=== PATIENT | male | born 1955 | race Caucasian/White ===

== ENCOUNTER → 2017-07-03 | Outpatient (CLI) | payer OTHER ==
[~2017-07-03] MED LIST: NS 100 ML IV 100 ML IV ONE
--- NOTE | 2017-07-03 12:29 | CT ---
CT chest with contrast Indication: Follow-up pulmonary nodule Comparison: 07/26/2014 Technique: Multiple axial images of the chest were obtained from the thoracic inlet to the upper abdo men after the administration of IV contrast. Findings: The thyroid gland is normal. Heart size is at the upper limits of normal without pericardial effusion . There is the moderate calcification of the aortic valve along with scattered calcification of the c oronary arteries. Small amount of fluid is noted within the pericardial recess. No enlarged mediastin al or hilar lymphadenopathy. Tiny subpleural pulmonary nodules noted within the right lower lobe on a xial image 42 which in retrospect was present on prior exam.. Calcification of the posterior pack seg ment unchanged. No acute inflammatory process identified within the visualized upper abdomen. There i s a small cyst again noted within the upper pole of the left kidney. Punctate stone is noted within t he lower pole left kidney as well. The all Impression: 1.No acute cardiopulmonary abnormality. No residual right hilar lymphadenopathy as was described on p rior CT examination. 2. Tiny subpleural pulmonary nodule within the right lower lobe unchanged from prior examination, giv en size and stability this is consistent with benign, inflammatory nodule. 3. Incidental findings within the visualized upper abdomen including stable calcification of the post erior pack segment, cyst within the upper pole left kidney and nonobstructing left nephrolithiasis. Reported By:
== END ==
LOC: RAD 09:28
PROVIDERS: ATTEND Internal Medicine
DX: R04.2 Hemoptysis (principal); Z72.0 Tobacco use
CPT/HCPCS: 71260; A4222

== ENCOUNTER 2023-12-06 11:44 | Observation (INO) ==
[2023-12-06 11:52] VITALS: BMI 40.6
--- NOTE | 2023-12-06 12:17 | DR.GENAD ---
HPI Time Seen Time Seen by Provider: 12/06/23 12:16 PCP Primary Care Physician: DR. FLORES Complaint/Symptoms Chief Complaint Doctors Comments: According to the spouse the patient around about 3 hours ago had some slurred speech he was shaking he was standing about a dresser and he does have a history of some tremors but he stated is been more in the last 3 months became more acute according to the this morning with more tremors. He is also has some cough and sore throat over the last couple of days Chief Complaint:: PT'S STATES THAT THIS MORNING WHEN SHE WALKED IN THE HOUSE PT WAS SHAKING AND HAD HIS HEAD LAID OVER THE DRESSER. STATES HE HAS TREMORS, BUT THIS WAS WAY WORSE. AND ALSO HAVING SOME SLURRED SPEECH WHICH HAS GOTTEN BETTER NOW. PT STATES HE WOKE UP THIS MORNING WITH A SORE THROAT, AND NOT FEELING GOOD. Source History Provided: Patient Mode of Arrival Mode of Arrival: Ambulatory Timing Onset of Chief Complaint: 12/06/23 PMH PMH Past Medical History: Yes Past Medical History: CHF, Hypertension and Hyperthyroidism Past Surgical History: Yes Surgical History: CABG/Valve Surgery and Other Family History History of Family Medical Conditions: Yes Family Medical History: Hypertension Social History Does patient currently use any type of tobacco product: No Have you used tobacco products in the last 12 months: No Type of Tobacco Use: None Does any household member use tobacco: No Alcohol Use: None Do you use any recreational Drugs:: No Lives With: Spouse Lives Where: Home Infectious screening Have you traveled outside the country in the last 6 months?: No Isolation: Standard ROS Review of Systems Constitutional: Other (Slurred speech with tremors) Eyes: No Symptoms Reported ENTM: No Symptoms Reported Respiratoy: No Symptoms Reported Cardiovascular: No Symptoms Reported Gastrointestinal/Abdominal: No Symptoms Reported Genitourinary: No Symptoms Reported Neurological: Speech Problem (Slurred speech) and Other Musculoskeletal: No Symptoms Reported Integumentary: No Symptoms Reported Hematologic/Lymphatic: No Symptoms Reported Endocrine: No Symptoms Reported Psychiatric: No Symptoms Reported PE Vital Signs Vitals: Vital Signs Temperature 98.0 F Temperature 98.8 F Pulse Rate 118 Pulse Rate 110 Respiratory Rate 20 Respiratory Rate 98 Respiratory Rate 20 Blood Pressure 130/75 Blood Pressure 135/69 Blood Pressure 138/60 O2 Sat by Pulse Oximetry 96 O2 Sat by Pulse Oximetry 95 O2 Sat by Pulse Oximetry 88 General Limitations: No Limitations General Appearance: Alert and In No Apparent Distress Head Head Exam: Normal Inspection Eyes Eye exam: Normal Appearance, PERRL and EOMI ENT ENT Exam: Normal Exam, Normal Oropharynx and Normal External Ear Exam External Ear Exam: Normal External Inspection TM/Canal Exam: Bilateral: Normal Nose Exam: Normal Nose Exam Mouth Exam: Normal Inspection Throat Exam: Normal Inspection Neck Neck Exam: Normal Inspection Chest Chest Inspection: Normal Inspection and Symmetric Chest Wall Rise Respiratory Respiratory Exam: Normal Lung Sounds Bilat Respiratory Exam: Bilateral: Clear to Auscultation Cardiovascular Cardiovascular Exam: Regular Rate and Normal Rhythm Abdominal Exam Abdominal Exam: Normal Inspection and Normal Bowel Sounds Extremities Extremities Exam: Normal Inspection Back Back Exam: Normal Inspection and Full ROM Neurologic Neurological Exam: Alert, Oriented X3 and CN II-XII Intact Psychiatric Psychiatric Exam: Normal Affect and Normal Mood Skin Skin Exam: Warm, Dry and Intact MDM Differential Diagnosis Differential Diagnosis: cva,seizure,sleep apnea COURSE Treatment Treatment: The patient was treated initially on a stroke protocol and the neurologist was and she felt that the patient probably had a seizure he will need to be ruled out for some type of embolic event. She suggested the patient since she could not he could not get a MRI to get tomorrow a CTA of the head and neck and a CT of head with contrast to rule out for some type of embolic event. She suggested patient be monitored overnight for any type of seizure activity but she did not think that the patient needed into the any antiseizure medications today during evaluation. Plan. The patient also had some renal insufficiency her BUN was 30 creatinine was 2.1 and his GFR was [address] we did speak to Dr[address] Bonilla that was a physician on- call and she said the patient could be admitted for further evaluation of the renal insufficiency and questionable seizure disorder and some type of TIA versus embolic stroke. The patient was told of the intent to admit and was agreeable to the admission. The utilization review stated the patient could be referred to observation. ROR Labs Reviewed Laboratory Results Reviewed?: Yes 12/06/23 12:50 12/06/23 12:50 Laboratory: WBC 8.8 X10^3/uL (3.6-10.0) 12/06/23 12:50 RBC 4.12 X10^6/uL (4.7-6.0) L 12/06/23 12:50 Hgb 12.0 g/dL (13.5-18.0) L 12/06/23 12:50 Hct 36.8 % (42.0-54.0) L 12/06/23 12:50 MCV 89.4 fL (80.0-100.0) 12/06/23 12:50 MCH 29.1 pg (27.0-34.0) 12/06/23 12:50 MCHC 32.5 g/dL (33.0-35.0) L 12/06/23 12:50 RDW 17.4 % (11.6-16.5) H 12/06/23 12:50 Plt Count 220 X10^3/uL (150.0-450.0) 12/06/23 12:50 MPV 6.6 fL (7.4-11.0) L 12/06/23 12:50 Neut % (Auto) 68.6 % (42.0-75.0) 12/06/23 12:50 Lymph % (Auto) 20.3 % (21.0-51.0) L 12/06/23 12:50 [place] % (Auto) 7.4 % (0.0-13.0) 12/06/23 12:50 Eos % (Auto) 2.7 % (0.9-2.9) 12/06/23 12:50 Baso % (Auto) 1.0 % (0.2-1.0) 12/06/23 12:50 Neut # (Auto) 6.1 x10^3/uL (2.2-4.8) H 12/06/23 12:50 Lymph # (Auto) 1.8 X10^3/uL (1.3-2.9) 12/06/23 12:50 [place] # (Auto) 0.7 x10^3/uL (0.3-0.8) 12/06/23 12:50 Eos # (Auto) 0.2 x10^3/uL (0.0-0.2) 12/06/23 12:50 Baso # (Auto) 0.1 X10^3/uL (0.0-0.1) 12/06/23 12:50 Absolute Nucleated RBC 0.1 /100WBC 12/06/23 12:50 PT 36.2 SECONDS (11.8-14.3) 12/06/23 12:50 INR Target Range - 12/06/23 12:50 INR 3.83 (0.8-1.3) H 12/06/23 12:50 APTT 72.9 SECONDS (22.9-36.5) H 12/06/23 12:50 PTT Comment - 12/06/23 12:50 Fibrinogen 571 mg/dL (239-489) H 12/06/23 12:50 Sodium 140 mmol/L (136-145) 12/06/23 12:50 Corrected Sodium TNP 12/06/23 12:50 Potassium 3.8 mmol/L (3.5-5.1) 12/06/23 12:50 Chloride 101 mmol/L (98-107) 12/06/23 12:50 Carbon Dioxide 32.4 mmol/L (21-32) H 12/06/23 12:50 BUN 30 mg/dL (7-18) H 12/06/23 12:50 Creatinine 2.11 mg/dL (0.70-1.30) H 12/06/23 12:50 Est GFR (MDRD) Af Amer 40 (>60) L 12/06/23 12:50 Est GFR (MDRD) Non-Af 33 (>60) L 12/06/23 12:50 Glucose 89 mg/dL (65-99) 12/06/23 12:50 POC Glucose (mg/dL) 119 mg/dL (65-99) H 12/06/23 12:47 Calcium 8.6 mg/dL (8.5-10.1) 12/06/23 12:50 Corrected Calcium TNP 12/06/23 12:50 Total Bilirubin 0.40 mg/dL (0.2-1.0) 12/06/23 12:50 AST 18 Units/L (15-37) 12/06/23 12:50 ALT 25 Units/L (12-78) 12/06/23 12:50 Alkaline Phosphatase 114 Units/L (46-116) 12/06/23 12:50 Creatine Kinase 97 Units/L (39-308) 12/06/23 12:50 Troponin I High Sens 9.4 ng/L (4.0-60.0) 12/06/23 12:50 Total Protein 7.1 g/dL (6.4-8.2) 12/06/23 12:50 Albumin 3.6 g/dL (3.4-5.0) 12/06/23 12:50 Globulin 3.5 g/dL (2.5-4.5) 12/06/23 12:50 Albumin/Globulin Ratio 1.0 Ratio (1.1-2.1) L 12/06/23 12:50 Triglycerides 149 mg/dL (0-150) 12/06/23 12:50 Cholesterol 121 mg/dL (0-200) 12/06/23 12:50 LDL Cholesterol, Calc 57 mg/dL (0-100) 12/06/23 12:50 HDL Cholesterol 34 mg/dL (40-60) L 12/06/23 12:50 Cholesterol/HDL Ratio 3.6 (0.0-5.0) 12/06/23 12:50 Specimen Type Clean catch urine 12/06/23 14:08 Urine Color Yellow (YELLOW) 12/06/23 14:08 Urine Appearance Clear (CLEAR) 12/06/23 14:08 Urine pH 5.0 (5.0 - 8.0) 12/06/23 14:08 Ur Specific Cope 1.030 (1.000-1.030) 12/06/23 14:08 Urine Protein 1+ (NEGATIVE) 12/06/23 14:08 Urine Glucose (UA) Negative (NEGATIVE) 12/06/23 14:08 Urine Ketones Negative (NEGATIVE) 12/06/23 14:08 Urine Blood Negative (NEGATIVE) 12/06/23 14:08 Urine Nitrite Negative (NEGATIVE) 12/06/23 14:08 Urine Bilirubin Negative (NEGATIVE) 12/06/23 14:08 Urine Urobilinogen Normal (NORMAL) 12/06/23 14:08 Ur Leukocyte Esterase Negative (NEGATIVE) 12/06/23 14:08 Urine RBC None seen /HPF (0-3) 12/06/23 14:08 Urine WBC 0-2 /HPF (0-5) 12/06/23 14:08 Ur Squamous Epith Cells Negative /HPF (NEGATIVE) 12/06/23 14:08 Urine Bacteria Trace /HPF (NEGATIVE) 12/06/23 14:08 Hyaline Casts Numerous /LPF (NEGATIVE) 12/06/23 14:08 Ur Culture Indicated? No/not indicated 12/06/23 14:08 Blood Type O POSITIVE 12/06/23 13:10 Antibody Screen Negative 12/06/23 13:10 Opioid Opioid Risk Tool Age (Qasim box if 16-45): No History of Preadolescent Sexual Abuse: No Total: 0 Total Score Risk Category: Low Risk Copyright: Alonso GREER predicting aberrant behaviors Discharge Plan Diagnosis Discharge Problem: Seizure, Brain TIA, Acute renal insufficiency Discharge Plan Patient Disposition: ADMITTED INPATIENT Condition: Stable Orders to Discharge Patient Discharge Orders: Transfer (Routine); Ordered 12/06/23 Ordered By: Roberto Najera
--- NOTE | 2023-12-06 13:04 | EKG ---
Test Reason : slurred speech Blood Pressure : */* mmHG Vent. Rate : 105 BPM Atrial Rate : 105 BPM P-R Int : 180 ms QRS Dur : 90 ms QT Int : 328 ms P-R-T Axes : 43 34 218 degrees QTc Int : 433 ms Sinus tachycardia Cannot rule out Anterior infarct , age undetermined Abnormal ECG When compared with ECG of 21-AUG-2023 10:06, No significant change was found Confirmed by Ivan Boland MD ([id number]) on 12/08/2023 11:24:25 AM Referred By: Confirmed By: Ivan Boland MD
[2023-12-06 13:05] LABS: BASOPHILS # (AUTO) 0.1 X10^3/uL (0.0-0.1); EOSINOPHILS # (AUTO) 0.2 x10^3/uL (0.0-0.2); EOSINOPHILS % (AUTO) 2.7 % (0.9-2.9); HEMATOCRIT 36.8 % (42.0-54.0); LYMPHOCYTES # (AUTO) 1.8 X10^3/uL (1.3-2.9); LYMPHOCYTES % (AUTO) 20.3 % (21.0-51.0); MEAN CORPUSCULAR HEMOGLOBIN 29.1 pg (27.0-34.0); MEAN CORPUSCULAR HGB CONC 32.5 g/dL (33.0-35.0); MEAN CORPUSCULAR VOLUME 89.4 fL (80.0-100.0); MEAN PLATELET VOLUME 6.6 fL (7.4-11.0); MONOCYTES # (AUTO) 0.7 x10^3/uL (0.3-0.8); MONOCYTES % (AUTO) 7.4 % (0.0-13.0); NEUTROPHILS # (AUTO) 6.1 x10^3/uL (2.2-4.8); NEUTROPHILS % (AUTO) 68.6 % (42.0-75.0); PLATELET COUNT 220 X10^3/uL (150.0-450.0); RED BLOOD COUNT 4.12 X10^6/uL (4.7-6.0); RED CELL DISTRIBUTION WIDTH 17.4 % (11.6-16.5); WHITE BLOOD COUNT 8.8 X10^3/uL (3.6-10.0)
[2023-12-06] MEDS: NS 1,000 ML IV 1,000 ML IV SCH ×2 (13:06→18:05)
--- NOTE | 2023-12-06 13:15 | CT ---
EXAM: BRAIN W/O CON HISTORY: slurred speech; heart cath, cabg COMPARISON: No relevant prior studies were available for comparison at the time of interpretation.. TECHNIQUE: CT images were obtained. Multiplanar reconstructions were created on a separate workstation and used during interpretation. All CT scans at this facility is dose modulation, iterative reconstruction, an d/or weight-based dosing as appropriate to reduce radiation to levels as low as reasonably achievable (ALARA). Postprocessing details, radiation dose, and contrast dose (if applicable) are recorded in t he patient's medical record. FINDINGS: Head: Acute findings: There is no intracranial hemorrhage. No mass effect. No intra-axial or extra-axial fl uid collection. There is no mass. No tentorial, uncal, or tonsillar herniation. Brain volume and white matter: Brain volume and attenuation is normal for age. Ventricles: No hydrocephalus Midline structures: Pituitary gland and corpus callosum are normal. Posterior fossa and skull base: Cerebellum and posterior fossa are within normal limits. Basal cister ns are not effaced. Sinuses and mastoids: Paranasal sinuses and mastoid air cells are predominantly clear. Globes and Orbits: Globes are intact. Bony orbits are intact. Orbital contents are unremarkable. Skull and soft tissues: No depressed skull fracture. Calvarium appears intact. No scalp injury is zacarias ntified. IMPRESSION: 1. No acute intracranial abnormality THIS IS AN ELECTRONICALLY VERIFIED FINAL REPORT 12/06/2023 1:12 PM - Electronically signed by Fabricio Islas MD
[2023-12-06 13:16] LABS: INR 3.83 (0.8-1.3)
[2023-12-06 13:20] LABS: ALANINE AMINOTRANSFERASE 25 Units/L (12-78); ALBUMIN 3.6 g/dL (3.4-5.0); ALKALINE PHOSPHATASE 114 Units/L (46-116); ASPARTATE AMINO TRANSFERASE 18 Units/L (15-37); BLOOD UREA NITROGEN 30 mg/dL (7-18); CALCIUM 8.6 mg/dL (8.5-10.1); CARBON DIOXIDE 32.4 mmol/L (21-32); CHLORIDE 101 mmol/L (98-107); CHOL/HDL RATIO 3.6 (0.0-5.0); CHOLESTEROL 121 mg/dL (0-200); CREATINE KINASE 97 Units/L (39-308); CREATININE 2.11 mg/dL (0.70-1.30); GLUCOSE 89 mg/dL (65-99); HDL CHOLESTEROL 34 mg/dL (40-60); POTASSIUM 3.8 mmol/L (3.5-5.1); SODIUM 140 mmol/L (136-145); TOTAL PROTEIN 7.1 g/dL (6.4-8.2); TRIGLYCERIDES 149 mg/dL (0-150); eGFR NON BLACK RACES 33 (>60)
--- NOTE | 2023-12-06 13:31 | TELESTROKE ---
[facility] Consult Date of Consult Date of Exam: 12/06/23 Time of Arrival to the ED: 11:45 Allergies Allergies Allergy/AdvReac Type Severity Reaction Status Date / Time No Known Allergies Allergy Verified 09/06/23 11:28 Vital Signs Vital Signs: Temp Pulse Resp BP Pulse Ox 12/06/23 11:45 98.8 F 110 H 20 138/60 88 L History of Present Illness History of Present Illness: [facility] Patient Name:Aldair Arnett Date of :1955 Identification Number: Date of Service:12/06/2023 12:31:31 Diagnosis:R47.81 - Slurred speech R29.818 - Transient neurological symptoms Impression: 68yoM hx of metal aortic valve, SATNAM, HTN, preDM, knee arthritis, hypothyroidims, cluster headache found by standing/leaning against furniture with generalized body shaking, followed by disorientation and dysarthria when called to him. Patient did not remember the event. CT head neg for acute finding On exam patient has mild dysarthria (persistent and new per patient and ). Denies history of seizure. Denies recent use of tramadol or Wellbutrin. Had episodes of possible sleep walking past few months. Not thrombolytics candidate, suspect other etiology, currently on warfarin, and no disabling deficit. DDx includes seizure, ?sleep walking, CVA. Unable to get MRI due to metal aortic valve. Recommendation - Observe for 24hr to possible recurrent episode with seizure precaution - CTA head/neck and CT head w/ contrast to look for possible new area of hypodensity and enhancement - Routine EEG, can be done outpatient HOWIE if not available in hospital. - Ok to continue warfarin Our recommendations are outlined below. Recommendations: Stroke/Telemetry Floor Neuro Checks Bedside Swallow Eval DVT Prophylaxis IV Fluids, Normal Saline Head of Bed 30 Degrees Euglycemia and Avoid Hyperthermia (PRN Acetaminophen) Sign Out: Discussed with Emergency Department Provider Advanced Imaging: Advanced Imaging Deferred because: Non-disabling symptoms as verified by the patient; no cortical signs so not consistent with LVO Metrics: Last Known Well: 12/06/2023 09:00:00 [facility] Notification Time: 12/06/2023 12:31:31 Arrival Time: 12/06/2023 11:45:00 Stamp Time: 12/06/2023 12:31:31 Initial Response Time: 12/06/2023 12:32:50Symptoms: confusion, slurred speech. Initial patient interaction: 12/06/2023 12:36:17 NIHSS Assessment Completed: 12/06/2023 12:36:04Patient is not a candidate for Thrombolytic. Thrombolytic Medical Decision: 12/06/2023 12:36:05Patient was not deemed candidate for Thrombolytic because of following reasons: No disabling symptoms. CT head showed no acute hemorrhage or acute core infarct. Primary Provider Notified of Diagnostic Impression and Management Plan on: 12/06/2023 13:20:58 History of Present Illness:Patient is a 68 year old Male. Patient was brought by private transportation with symptoms of confusion, slurred speech. Last time patient remember was taking a nap on the recliner. Per she last saw patient at baseline around 9AM. She left the house and came back about 10AM, called out to patient and noted he did not respond. found patient in the bedroom, leaning foward on the dresser in standing position, head down/lean on edge of dresser, having diffuse large amplitude body shaking. called out to him and he responded immediately. noticed he was disoriented and has slurred speech. Patient does not remember going to the bedroom or the event itself. Denies history of seizure or passing out episode. Reports a few weeks ago he woke up with his tongue feeling sore. did not remember why seizure like activity or had concern for previous seizure. Patient was prescribed tramadol PRN a few months ago for pain due to original PCP is not available to sign for oxycodone. Baseline he occasionally uses a walker to ambulate due to bad knee. Last time use tramadol for 2-3 weeks ago. Denies any use today. Previously was on Abilify that cause confusion. Past few months he had a few times he woke up and not realize how he was next to the wall. Been off Wellbutrin for the past 5-6 month ago. Unable to get MRI due to metal aortic valve Past Medical History: Other PMH: metal aortic valve, SATNAM, HTN, preDM, knee arthritis, hypothyroidims, cluster headache Medications: Anticoagulant use:Yeswarfarin No Antiplatelet use Reviewed EMR for current medications Allergies: Reviewed,NKDA Social History: Smoking: Former Alcohol Use: No Family History: There is no family history of premature cerebrovascular disease pertinent to this consultation ROS : 14 Points Review of Systems was performed and was negative except mentioned in HPI. Past Surgical History: There Is No Surgical History Contributory To Todays Visit Examination: BP(135/69),Pulse(111),Blood Glucose(119) 1A: Level of Consciousness - Alert; keenly responsive+ 0 1B: Ask Month and Age - Both Questions Right+ 0 1C: Blink Eyes & Squeeze Hands - Performs Both Tasks+ 0 2: Test Horizontal Extraocular Movements - Normal+ 0 3: Test Visual Hu - No Visual Loss+ 0 4: Test Facial Palsy (Use Grimace if Obtunded) - Normal symmetry+ 0 5A: Test Left Arm Motor Drift - No Drift for 10 Seconds+ 0 5B: Test Right Arm Motor Drift - No Drift for 10 Seconds+ 0 6A: Test Left Leg Motor Drift - No Drift for 5 Seconds+ 0 6B: Test Right Leg Motor Drift - No Drift for 5 Seconds+ 0 7: Test Limb Ataxia (FNF/Heel-Morrissey) - No Ataxia+ 0 8: Test Sensation - Normal; No sensory loss+ 0 9: Test Language/Aphasia - Normal; No aphasia+ 0 10: Test Dysarthria - Mild-Moderate Dysarthria: Slurring but can be understood+ 1 11: Test Extinction/Inattention - No abnormality+ 0 NIHSS Score:1 Pre-Morbid Modified Pura Scale:1 Points = No significant disability despite symptoms; able to carry out all usual duties and activities Spoke with :Dr. Najera This consult was conducted in real time using interactive audio and video technology. Patient was informed of the technology being used for this visit and agreed to proceed. Patient located in hospital and provider located at home/office setting. Patient is being evaluated for possible acute neurologic impairment and high probability of imminent or life-threatening deterioration. I spent total of 50 minutes providing care to this patient, including time for face to face visit via telemedicine, review of medical records, imaging studies and discussion of findings with providers, the patient and/or family. Dr Henry Barksdale [facility] For Inpatient follow-up with [facility] physician please call [facility] [phone]. This is not an outpatient service. Post hospital discharge, please contact hospital directly. Please call or reconsult our service if there are any clinical or diagnostic changes. Medical Decision Making 12/06/23 12:50 12/06/23 12:50 Labs: Laboratory Results - last 24 hr 12/06/23 12/06/23 12:47 12:50 WBC 8.8 RBC 4.12 L Hgb 12.0 L Hct 36.8 L MCV 89.4 MCH 29.1 MCHC 32.5 L RDW 17.4 H Plt Count 220 MPV 6.6 L Neut % (Auto) 68.6 Lymph % (Auto) 20.3 L [place] % (Auto) 7.4 Eos % (Auto) 2.7 Baso % (Auto) 1.0 Neut # (Auto) 6.1 H Lymph # (Auto) 1.8 [place] # (Auto) 0.7 Eos # (Auto) 0.2 Baso # (Auto) 0.1 Absolute Nucleated RBC 0.1 PT 36.2 INR Target Range - INR 3.83 H APTT 72.9 H PTT Comment - Fibrinogen 571 H Sodium 140 Corrected Sodium TNP Potassium 3.8 Chloride 101 Carbon Dioxide 32.4 H BUN 30 H Creatinine 2.11 H Est GFR (MDRD) Af Amer 40 L Est GFR (MDRD) Non-Af 33 L Glucose 89 POC Glucose (mg/dL) 119 H Calcium 8.6 Corrected Calcium TNP Total Bilirubin 0.40 AST 18 ALT 25 Alkaline Phosphatase 114 Creatine Kinase 97 Troponin I High Sens 9.4 Total Protein 7.1 Albumin 3.6 Globulin 3.5 Albumin/Globulin Ratio 1.0 L Triglycerides 149 Cholesterol 121 LDL Cholesterol, Calc 57 HDL Cholesterol 34 L Cholesterol/HDL Ratio 3.6
--- NOTE | 2023-12-06 13:44 | RAD ---
EXAM: CHEST, 1 VIEW HISTORY: SLURRED SPEECH; heart cath, cabg COMPARISON: 08/21/2023 FINDINGS: The cardiomediastinal silhouette is stable. Similar sternotomy changes. Chronic appearing interstitial changes in the lungs. No acute airspace disease. No pneumothorax or ef fusion. No acute osseous abnormality. IMPRESSION: No acute cardiopulmonary disease. THIS IS AN ELECTRONICALLY VERIFIED FINAL REPORT 12/06/2023 1:40 PM - Electronically signed by Alexis Marmolejo MD
[2023-12-06 14:21] LABS: BILIRUBIN,URINE NEGATIVE (NEGATIVE); BLOOD/HEMOGLOBIN,URINE NEGATIVE (NEGATIVE); GLUCOSE, URINE NEGATIVE (NEGATIVE); KETONES,URINE NEGATIVE (NEGATIVE); LEUKOCYTE ESTERASE ,URINE NEGATIVE (NEGATIVE); NITRITES,URINE NEGATIVE (NEGATIVE); PROTEIN,URINE 1+ (NEGATIVE); UROBILINOGEN,URINE NORMAL (NORMAL)
[2023-12-06 14:30] LABS: APPEARANCE,URINE CLEAR (CLEAR); BACTERIA,URINE TRACE /HPF (NEGATIVE); COLOR,URINE YELLOW (YELLOW); HYALINE CASTS, URINE NUMEROUS /LPF (NEGATIVE); RBC,URINE NONE SEEN /HPF (0-3); SQUAMOUS EPITHELIAL CELL,UR NEGATIVE /HPF (NEGATIVE)
[2023-12-06] MEDS ORDERED: GLUCOPHAGE ONE (20:00)
[2023-12-06] MEDS: COUMADIN TAB 7.5 MG (JANTOVEN) PO SCH (21:31)
[2023-12-06] MEDS: DESYREL PO SCH (21:31)
[2023-12-06] MEDS: MIRAPEX TAB 0.25 MG PO SCH (21:32)
[2023-12-06] MEDS: GLUCOPHAGE PO SCH (21:32)
[2023-12-07 05:50] VITALS: RESP 20
[2023-12-07 06:17] LABS: BASOPHILS # (AUTO) 0.1 X10^3/uL (0.0-0.1); BASOPHILS % (AUTO) 0.9 % (0.2-1.0); EOSINOPHILS # (AUTO) 0.2 x10^3/uL (0.0-0.2); EOSINOPHILS % (AUTO) 3.5 % (0.9-2.9); HEMATOCRIT 33.9 % (42.0-54.0); HEMOGLOBIN 11.3 g/dL (13.5-18.0); LYMPHOCYTES % (AUTO) 16.4 % (21.0-51.0); MEAN CORPUSCULAR HEMOGLOBIN 29.6 pg (27.0-34.0); MEAN CORPUSCULAR HGB CONC 33.3 g/dL (33.0-35.0); MEAN CORPUSCULAR VOLUME 88.9 fL (80.0-100.0); MEAN PLATELET VOLUME 6.8 fL (7.4-11.0); MONOCYTES # (AUTO) 0.5 x10^3/uL (0.3-0.8); MONOCYTES % (AUTO) 7.4 % (0.0-13.0); NEUTROPHILS # (AUTO) 4.5 x10^3/uL (2.2-4.8); NEUTROPHILS % (AUTO) 71.8 % (42.0-75.0); PLATELET COUNT 206 X10^3/uL (150.0-450.0); RED BLOOD COUNT 3.82 X10^6/uL (4.7-6.0); RED CELL DISTRIBUTION WIDTH 17.6 % (11.6-16.5); WHITE BLOOD COUNT 6.3 X10^3/uL (3.6-10.0)
[2023-12-07 06:21] LABS: INR 3.48 (0.8-1.3)
[2023-12-07 06:33] LABS: ALBUMIN 2.9 g/dL (3.4-5.0); CALCIUM 8.4 mg/dL (8.5-10.1); CARBON DIOXIDE 33.7 mmol/L (21-32); COR CA(FOR HYPOALB) 9.3 mg/dL (8.5-10.1); CREATININE 1.54 mg/dL (0.70-1.30); POTASSIUM 3.3 mmol/L (3.5-5.1); TOTAL PROTEIN 6.1 g/dL (6.4-8.2)
[2023-12-07] MEDS ORDERED: CONSULT PHARMACY - POTASSIUM & MAGNESIUM XX SCH (07:00)
[2023-12-07] MEDS ORDERED: ZAROXOLYN PO SCH (08:30)
[2023-12-07] MEDS ORDERED: PRAMIPEXOLE 0.5 MG PO SCH (09:00)
[2023-12-07] MEDS ORDERED: COUMADIN TAB 5 MG (JANTOVEN) PO SCH ×2 (09:00)
[2023-12-07] MEDS ORDERED: LASIX PO SCH (09:00)
[2023-12-07] MEDS ORDERED: PATIENT'S HOME MEDICATION (Doxazosin 4 mg tablet) PO SCH (09:00)
[2023-12-07 09:28] VITALS: BP 144/64; PULSE 94; TEMP 98.1; O2SAT 97
[2023-12-07] MEDS: MAG-OX TAB PO SCH (09:46)
[2023-12-07] MEDS: CARDURA PO SCH (09:46)
[2023-12-07] MEDS: SYNTHROID 75 mcg TAB PO SCH (09:46)
[2023-12-07] MEDS: K-DUR TAB 20 MEQ PO SCH (09:46)
--- NOTE | 2023-12-07 09:53 | CT ---
EXAM: BRAIN CT WITH CONTRAST HISTORY: r/o stroke; COMPARISON: None available. TECHNIQUE: Multiple helical images of the brain from the vertex to the occiput were obtained with and without IV contrast. Coronal and sagittal reformats were performed. Dose reduction techniques including Automated Exposure Control (AEC) and adjustment of mA and kV were utilized. FINDINGS: No acute intraparenchymal hemorrhage or cytotoxic edema is identified. No extra-axial fluid collecti ons are seen. No alteration in the attenuation of the brain parenchyma can be identified to suggest a cute or subacute ischemic change. However, if the patients symptoms are clinically & neurologically c oncerning for an acute ischemic event, then MR imaging of the brain with DWI sequencing could be cons idered to exclude an acute CVA (based on this patient's clinical presentation and the specific medica l circumstances). Also, if there remains strong concern for an intracranial neoplasm or mass, then f ollow-up with CT or MR imaging of the brain with IV contrast is recommended for improved inspection ( which would be more sensitive for the assessment of any intracranial neoplasia). The ventricular syst em is symmetric and nondilated. The extracranial structures are grossly unremarkable. The visualize d paranasal sinuses and mastoid air cells are relatively clear on this examination as well. No enhan cing mass lesions are seen. IMPRESSION: Negative pre and postcontrast head CT Exam. No acute intracranial hemorrhage seen. If there remains strong clinical concern for an acute CVA/ischemic event in this setting, then follow-up brain MRI wi th DWI sequencing should be considered to definitively exclude acute cerebral ischemia, based on [facility] history and neurological assessment. THIS IS AN ELECTRONICALLY VERIFIED FINAL REPORT 12/07/2023 9:48 AM - Electronically signed by Lico Norwood MD
--- NOTE | 2023-12-07 09:56 | CT ---
EXAM:CAROTID CTAHISTORY:r/o stroke;COMPARISON:NoneTECHNIQUE:CT angiogram of the head and neck obtained without and with IV contrast. 3D MIPS images obtained and reviewed. Sagittal and coronal reformatted images were performed. Dose reduction techniques including Automated Exposure Control (AEC) and adjustment of mA and kV were utilized.FINDINGS:The common carotid arteries demonstrate no evidence for high-grade stenosis or occlusion.The internal carotid arteries demonstrate no evidence for high-grade stenosis or occlusion.There is mild atherosclerotic calcification seen at the carotid bulb level bilaterally in this patient.No labeled plaque formation or arterial occlusion is seen.The visualized intracranial arteries demonstrate no significant abnormality or high-grade stenosis/occlusion.No large neck mass lesion or pathologic cervical chain adenopathy is identified. No acute bony injury is seen.Mild/moderate degenerative C-spine spondylosis is noted.IMPRESSION:No high-grade stenosis or occlusion of the carotid arteries are neck vessels is seen. No other acute neck vascular abnormalities are observed.Mild carotid bulb and cavernous carotid segments atherosclerosis.THIS IS AN ELECTRONICALLY VERIFIED FINAL REPORT12/07/2023 9:52 AM - Electronically signed by Lico Norwood MD
[2023-12-07] MEDS: GLUCOPHAGE ONE (10:03)
[2023-12-07] MEDS: OMNIPAQUE 350 mg/mL 50 mL BTL 50 ML ONE (10:04)
[2023-12-07] MEDS: OMNIPAQUE 350 mg/mL 100 mL BTL 100 ML ONE (10:04)
[2023-12-07] MEDS: K-DUR TAB 20 MEQ PO ONE (11:25)
--- NOTE | 2023-12-13 09:42 | DR.SSS ---
SHORT STAY SUMMARY Admission Date Date of Admission: 12/06/23 Discharge Date Discharge Date: 12/07/23 Admission Diagnoses Admission Diagnoses: Slurred speech Tremors Hypokalemia Dehydration Discharge Diagnoses Discharge Diagnoses: Tremors Hypokalemia Dehydration PILAR Chief Complaint Chief Complaint: Slurred speech/tremor History of Present Illness History of Present Illness: Mr. Arnett is a 68-year-old male who presented with shaking and slurred speech. He was noted to have worsening tremors and was brought in for further evaluation. In the ER teleneurology was consulted and recommended CTA head and neck. CT brain was negative for any acute changes. Patient's speech was back back to normal while he was in the ER did not have any neurological deficits. His labs did show mild PILAR and he was started on IV fluids. He was admitted for further management. Past Medical History Past Medical History: CHF, Hypertension and Hyperthyroidism Past Surgical History Surgical History: CABG/Valve Surgery and Other Allergies Allergies Allergy/AdvReac Type Severity Reaction Status Date / Time No Known Allergies Allergy Verified 09/06/23 11:28 Medications Home Medications: No Known Allergies Allergy (Verified 09/06/23 11:28) CONTINUE taking the following medications doxazosin 4 mg tablet 4 mg PO DAILY 12/06/23 [History] furosemide 40 mg tablet 40 mg PO DAILY 12/06/23 [History] levothyroxine 75 mcg tablet 75 mcg PO DAILY 12/06/23 [History] metformin 500 mg tablet 500 mg PO BID 12/06/23 [History] metolazone 5 mg tablet 5 mg PO DAILY 12/06/23 [History] oxycodone 20 mg tablet 20 mg PO BID PRN 12/06/23 [History] potassium chloride 20 mEq tablet,extended release(part/cryst) 20 meq PO DAILY 12/06/23 [History] pramipexole 0.5 mg tablet 0.5 mg PO DAILY 12/06/23 [History] semaglutide 2 mg/dose (8 mg/3 mL) subcutaneous pen injector (Ozempic) 2 mg subcut WEEKLY 12/06/23 [History] tramadol 50 mg tablet 50 mg PO BID PRN 12/06/23 [History] trazodone 100 mg tablet 100 mg PO HS 12/06/23 [History] Family History Family Medical History: Hypertension Social History Does patient currently use any type of tobacco product: No Have you used tobacco products in the last 12 months: No Type of Tobacco Use: None Does any household member use tobacco: No Alcohol Use: None Drug Use: None Review of Systems Constitutional: No Symptoms Reported Eyes: No Symptoms Reported ENT: No Symptoms Reported Respiratory: No Symptoms Reported Cardiovascular: No Symptoms Reported Gastrointestinal: No Symptoms Reported Musculoskeletal: Other (generalized tremors ) Skin: No Symptoms Reported Neurological: Change in Speech Physical Exam Vital Signs: Last Vital Signs Temp 98.1 F 12/07/23 08:00 Pulse 94 H 12/07/23 08:00 Resp 20 12/07/23 08:00 BP 144/64 12/07/23 08:00 Pulse Ox 97 12/07/23 08:00 O2 Del Method Room Air 12/07/23 08:00 Oriented: Normal Eyes: Normal Nose: Normal Throat: Normal Respiratory: Clear Throughout Cardiovascular: Normal Auscultation: Bowel Sounds: Normal Palpation: Normal Tenderness: Normal Skin: Normal Musculoskeletal: Normal Psychiatric: Normal Mood Description: Calm Affect: Normal Speech Pattern: Clear and Appropriate Labs Labs: Laboratory Last Values WBC 6.3 X10^3/uL (3.6-10.0) 12/07/23 05:35 RBC 3.82 X10^6/uL (4.7-6.0) L 12/07/23 05:35 Hgb 11.3 g/dL (13.5-18.0) L 12/07/23 05:35 Hct 33.9 % (42.0-54.0) L 12/07/23 05:35 MCV 88.9 fL (80.0-100.0) 12/07/23 05:35 MCH 29.6 pg (27.0-34.0) 12/07/23 05:35 MCHC 33.3 g/dL (33.0-35.0) 12/07/23 05:35 RDW 17.6 % (11.6-16.5) H 12/07/23 05:35 Plt Count 206 X10^3/uL (150.0-450.0) 12/07/23 05:35 MPV 6.8 fL (7.4-11.0) L 12/07/23 05:35 Neut % (Auto) 71.8 % (42.0-75.0) 12/07/23 05:35 Lymph % (Auto) 16.4 % (21.0-51.0) L 12/07/23 05:35 [place] % (Auto) 7.4 % (0.0-13.0) 12/07/23 05:35 Eos % (Auto) 3.5 % (0.9-2.9) H 12/07/23 05:35 Baso % (Auto) 0.9 % (0.2-1.0) 12/07/23 05:35 Neut # (Auto) 4.5 x10^3/uL (2.2-4.8) 12/07/23 05:35 Lymph # (Auto) 1.0 X10^3/uL (1.3-2.9) L 12/07/23 05:35 [place] # (Auto) 0.5 x10^3/uL (0.3-0.8) 12/07/23 05:35 Eos # (Auto) 0.2 x10^3/uL (0.0-0.2) 12/07/23 05:35 Baso # (Auto) 0.1 X10^3/uL (0.0-0.1) 12/07/23 05:35 Absolute Nucleated RBC 0.0 /100WBC 12/07/23 05:35 PT 33.7 SECONDS (11.8-14.3) 12/07/23 05:35 INR Target Range - 12/07/23 05:35 INR 3.48 (0.8-1.3) H 12/07/23 05:35 APTT 72.9 SECONDS (22.9-36.5) H 12/06/23 12:50 PTT Comment - 12/06/23 12:50 Fibrinogen 571 mg/dL (239-489) H 12/06/23 12:50 Sodium 140 mmol/L (136-145) 12/07/23 05:35 Corrected Sodium 141 mmol/L (136-145) 12/07/23 05:35 Potassium 3.3 mmol/L (3.5-5.1) L 12/07/23 05:35 Chloride 103 mmol/L (98-107) 12/07/23 05:35 Carbon Dioxide 33.7 mmol/L (21-32) H 12/07/23 05:35 BUN 24 mg/dL (7-18) H 12/07/23 05:35 Creatinine 1.54 mg/dL (0.70-1.30) H 12/07/23 05:35 Est GFR (MDRD) Af Amer 58 (>60) L 12/07/23 05:35 Est GFR (MDRD) Non-Af 48 (>60) L 12/07/23 05:35 Glucose 139 mg/dL (65-99) H 12/07/23 05:35 POC Glucose (mg/dL) 119 mg/dL (65-99) H 12/06/23 12:47 Calcium 8.4 mg/dL (8.5-10.1) L 12/07/23 05:35 Corrected Calcium 9.3 mg/dL (8.5-10.1) 12/07/23 05:35 Magnesium 1.9 mg/dL (2.0-2.9) L 12/07/23 05:35 Total Bilirubin 0.60 mg/dL (0.2-1.0) 12/07/23 05:35 AST 18 Units/L (15-37) 12/07/23 05:35 ALT 20 Units/L (12-78) 12/07/23 05:35 Alkaline Phosphatase 99 Units/L (46-116) 12/07/23 05:35 Creatine Kinase 97 Units/L (39-308) 12/06/23 12:50 Troponin I High Sens 9.4 ng/L (4.0-60.0) 12/06/23 12:50 Total Protein 6.1 g/dL (6.4-8.2) L 12/07/23 05:35 Albumin 2.9 g/dL (3.4-5.0) L 12/07/23 05:35 Globulin 3.2 g/dL (2.5-4.5) 12/07/23 05:35 Albumin/Globulin Ratio 0.9 Ratio (1.1-2.1) L 12/07/23 05:35 Triglycerides 149 mg/dL (0-150) 12/06/23 12:50 Cholesterol 121 mg/dL (0-200) 12/06/23 12:50 LDL Cholesterol, Calc 57 mg/dL (0-100) 12/06/23 12:50 HDL Cholesterol 34 mg/dL (40-60) L 12/06/23 12:50 Cholesterol/HDL Ratio 3.6 (0.0-5.0) 12/06/23 12:50 Specimen Type Clean catch urine 12/06/23 14:08 Urine Color Yellow (YELLOW) 12/06/23 14:08 Urine Appearance Clear (CLEAR) 12/06/23 14:08 Urine pH 5.0 (5.0 - 8.0) 12/06/23 14:08 Ur Specific [place] 1.030 (1.000-1.030) 12/06/23 14:08 Urine Protein 1+ (NEGATIVE) 12/06/23 14:08 Urine Glucose (UA) Negative (NEGATIVE) 12/06/23 14:08 Urine Ketones Negative (NEGATIVE) 12/06/23 14:08 Urine Blood Negative (NEGATIVE) 12/06/23 14:08 Urine Nitrite Negative (NEGATIVE) 12/06/23 14:08 Urine Bilirubin Negative (NEGATIVE) 12/06/23 14:08 Urine Urobilinogen Normal (NORMAL) 12/06/23 14:08 Ur Leukocyte Esterase Negative (NEGATIVE) 12/06/23 14:08 Urine RBC None seen /HPF (0-3) 12/06/23 14:08 Urine WBC 0-2 /HPF (0-5) 12/06/23 14:08 Ur Squamous Epith Cells Negative /HPF (NEGATIVE) 12/06/23 14:08 Urine Bacteria Trace /HPF (NEGATIVE) 12/06/23 14:08 Hyaline Casts Numerous /LPF (NEGATIVE) 12/06/23 14:08 Ur Culture Indicated? No/not indicated 12/06/23 14:08 Blood Type O POSITIVE 12/06/23 13:10 Antibody Screen Negative 12/06/23 13:10 Hospital Course Hospital Course: Patient was admitted with telemetry and neurochecks. His labs were monitored daily and electrolytes replaced as needed. CTA head and neck was negative. Patient was ambulating in the room and tolerating p.o. intake. He did not have any neurological deficits on exam. He was stable to be discharged home. He will follow-up with PCP as scheduled. Discharge Medications Discharge Medications: Home Medication List doxazosin 4 mg tablet 4 mg PO DAILY 12/06/23 [History] furosemide 40 mg tablet 40 mg PO DAILY 12/06/23 [History] levothyroxine 75 mcg tablet 75 mcg PO DAILY 12/06/23 [History] metformin 500 mg tablet 500 mg PO BID 12/06/23 [History] metolazone 5 mg tablet 5 mg PO DAILY 12/06/23 [History] oxycodone 20 mg tablet 20 mg PO BID PRN 12/06/23 [History] potassium chloride 20 mEq tablet,extended release(part/cryst) 20 meq PO DAILY 12/06/23 [History] pramipexole 0.5 mg tablet 0.5 mg PO DAILY 12/06/23 [History] semaglutide 2 mg/dose (8 mg/3 mL) subcutaneous pen injector (Ozempic) 2 mg subcut WEEKLY 12/06/23 [History] tramadol 50 mg tablet 50 mg PO BID PRN 12/06/23 [History] trazodone 100 mg tablet 100 mg PO HS 12/06/23 [History] Prescriptions: Discharge Disposition Discharge Disposition: To home Discharge Plan Discharge Plan Patient Disposition: 01 HOME, SELF-CARE Condition: Stable Health Concerns: Post Hospitalization: new medications and changes needed to prevent readmission or further decline. Pt educated and given instructions on all concerns. Plan of Treatment: Continue with present treatment and follow up plan. Pt is to keep follow up appointment as instructed and take medications as ordered. Prescription drug monitoring program results: PDMP reviewed and no concerns zacarias ntified Prescriptions: Continued warfarin 5 mg tablet 7.5 mg PO DAILY furosemide 40 mg tablet 40 mg PO DAILY metformin 500 mg tablet 500 mg PO BID metolazone 5 mg tablet 5 mg PO DAILY tramadol 50 mg tablet 50 mg PO BID PRN levothyroxine 75 mcg tablet 75 mcg PO DAILY pramipexole 0.5 mg tablet 0.5 mg PO DAILY potassium chloride 20 mEq tablet,ER particles/crystals 20 meq PO DAILY trazodone 100 mg tablet 100 mg PO HS doxazosin 4 mg tablet 4 mg PO DAILY oxycodone 20 mg tablet 20 mg PO BID PRN Ozempic 2 mg/dose (8 mg/3 mL) pen injector 2 mg SUBCUT WEEKLY Patient Comments: [NO ORIGINAL SIG] Orders to Discharge Patient Discharge Orders: Discharge (Routine); Ordered 12/07/23 Ordered By: Aditi Masters Follow ups/Referrals Follow ups/Referrals: Mj Gregory [Primary Care Provider] - 3 days Instructions Stand Alone Forms: Excuse From Work or School, Post Hospital Follow Up Care
== END 2023-12-07 11:51 | disposition home or self-care (01) ==
LOC: ER 11:44 → MED/SURG 11:44
PROVIDERS: ADMIT Internal Medicine; ATTEND Internal Medicine
DX: Z79.01 Long term (current) use of anticoagulants; R94.31 Abnormal electrocardiogram [ECG] [EKG]; N17.8 Other acute kidney failure; I10 Essential (primary) hypertension; R41.0 Disorientation, unspecified; R79.1 Abnormal coagulation profile; R47.81 Slurred speech; G25.2 Other specified forms of tremor; R00.0 Tachycardia, unspecified; R29.818 Other symptoms and signs involving the nervous system; E83.42 Hypomagnesemia; R05.8 Other specified cough